=== PATIENT | male | born 1965 | race Caucasian/White ===

== ENCOUNTER → 2024-03-18 14:28 | Outpatient (CLI) | payer OTHER, SELFPAY | PROVIDERS: PCP Physician Assistant; Visit Provider Urology | DX: Z01.818 Encounter for other preprocedural examination (principal); N40.1 Benign prostatic hyperplasia with lower urinary tract symptoms; Z12.5 Encounter for screening for malignant neoplasm of prostate | CPT/HCPCS: 81002; 87086; 99214 ==

== ENCOUNTER 2024-03-24 10:55 | Day surgery (SDC) | payer OTHER, SELFPAY ==
[2024-03-18 09:23] VITALS: BMI 25.3
[2024-03-24] VITALS (8 sets, daily range): BP systolic 108–162; BP diastolic 68–90; PULSE 70–77; RESP 10–18; TEMP 36.1–36.8; O2SAT 94–98; BMI 25.3
--- NOTE | 2024-03-24 | PATH_ITS ---
[facility] Accession Number: [id number] No. of containers..01 Tissue . 01 Material submitted: . prostate - PROSTATE CHIPS . 01 Diagnosis: PROSTATE CHIPS (WEIGHT 3 GRAMS): Benign prostatic tissue with glandular and stromal hyperplasia and patchy chronic inflammation. MRV 03/27/2024 1334 Local . 01 Electronically signed: . Kirti Mcintyre MD, Pathologist NPI- [id number] . 01 Gross description: . Received in formalin with two patient identifiers and prostate chips, are multiple hammer soft tissue fragments weighing 3 grams and aggregating to 5.0 x 3.7 x 1.2 cm. Submitted entirely in A1-A4. ([id number]) /MRV 03/25/2024 1510 Local . 01 Pathologist provided ICD-10: N40.1 . 01 CPT . 172876 Specimen Comment: A courtesy copy of this report has been sent to [facility] Pathology Performed at: [address] [facility], [place], [place] [id number] MD Gordon Betts MD Phone: [phone]
[2024-03-24] MEDS: LACTATED RINGERS 1,000 ML 21 ML IV (11:08)
[2024-03-24] MEDS: ACETAMINOPHEN 325 MG TABLET 975 MG PO (11:09)
--- NOTE | 2024-03-24 11:43 | PM.PREOP ---
Pre-operative Note COVID-19 COVID-19 status: Not tested Interval Note History & Physical reviewed/Exam performed by Physician: Yes Changes to H&P: No
--- NOTE | 2024-03-24 11:55 | SUR.OPER ---
Lithotomy on padded OR bed, head on pillow, arms secured on padded arm boards at <90 degrees abduction. Legs secured in padded yellow fins stirrups.
[2024-03-24] MEDS: CEFAZOLIN 2 GM/100 ML PREMIX 100 ML IV (12:45)
--- NOTE | 2024-03-24 13:42 | P.OP_ITS ---
Procedure & Clinicians Procedure: Cystoscopy Transurethral resection of prostate Same procedure as scheduled: Yes Indications: 58 y/o M w/ BPH and bothersome LUTS that have been refractory to medical therapy and strongly desires management via a TURP. Surgeon: Dalton Villarreal Click Yes if Unassisted: Yes Anesthesia Type: General Operative Notes Findings: Coaptating lateral prostatic lobes Closure Type: not applicable Specimen(s): other (prostate chips) Applied: catheter Estimated Blood Loss (mL): 20 Blood products transfused: none Procedure in detail: Patient was identified in the preoperative holding area and consent confirmed. He was then brought to the operating room where general anesthesia was induced. He was then placed in the low lithotomy position. He was then prepped and draped in the usual sterile fashion. A surgical timeout was conducted and all were in agreement. Access to the bladder was obtained via a 21Fr cystoscope. Complete cystoscopy was then performed using a 30 and 70 degree lens. Bilateral ureteral orifice were easily visualized and noted to be orthotopic in nature. He had grade 3 trabeculations throughout his bladder, no concerning masses or lesions were appreciated. The cystoscope was then removed and the urethra was serially dilated from 22Fr to 30Fr using Anaid sounds. The 26Fr resectoscope with visual obturator was then advanced through his urethra and into his bladder. The working element with Gyrus loop was then assembled and passed through the resectoscope and into the bladder. Beginning at the 5 o'clock position, a channel was created from bladder neck to immediately proximal to the verumontanum down to the level of the prostatic capsule. This was repeated in similar fashion at the 7 o'clock position. The median bar, right lateral prostatic lobes and left lateral prostatic lobe were then resected down to the level of the prostatic capsule. All prostate specimens were then manually evacuated from the bladder using the resectoscope. Hemostasis was evaluated and noted to be excellent at case end. A 22Fr 3-way hematuria catheter was then inserted into his bladder, 45cc of sterile water was utilized for balloon insufflation. Continuous bladder irrigation was then initiated and it was noted to be clear. Anesthesia was reversed, he was extubated in the OR and tra nsferred to the PACU in stable condition for recovery. Complications: none Post-operative Condition: stable Disposition: PACU Plan for aftercare: Will continue to run CBI for a few hours to evaluate the efflux from his catheter.? Should it remain relatively clear and with minimal blood clots, will discharge home with catheter in place and have him return to Urology clinic in 2 days for a voiding trial.? Should his efflux remain red or have significant clot burden, will admit overnight for observation and continued CBI.
== END 2024-03-24 16:48 | disposition home or self-care (01) ==
PROVIDERS: PCP Physician Assistant; Referring Provider Urology; Visit Provider Urology
PROC: 0VT08ZZ Resection of Prostate, Via Natural or Artificial Opening Endoscopic (ICD-10-PCS; CPT 52601; principal; 2024-03-24 12:45)
DX: N40.1 Benign prostatic hyperplasia with lower urinary tract symptoms (principal); N13.8 Other obstructive and reflux uropathy; N32.89 Other specified disorders of bladder; N41.1 Chronic prostatitis; R39.11 Hesitancy of micturition; R33.9 Retention of urine, unspecified; R39.12 Poor urinary stream; R35.1 Nocturia
CPT/HCPCS: 52601; J0690; J2704; J3010

== ENCOUNTER → 2024-03-26 15:30 | Outpatient (CLI) | payer OTHER, SELFPAY | PROVIDERS: PCP Physician Assistant; Visit Provider Urology | DX: Z12.5 Encounter for screening for malignant neoplasm of prostate (principal); N40.1 Benign prostatic hyperplasia with lower urinary tract symptoms; R39.9 Unspecified symptoms and signs involving the genitourinary system | CPT/HCPCS: 51798; 87086; 99213 ==